=== PATIENT | female | born 1965 | race Caucasian/White ===

== ENCOUNTER 2019-12-24 08:48 | Day surgery (SDC) | payer BC ==
[~2019-12-24 08:48] MED LIST: Lactated Ringers 1,000 ML IV SCH; Sodium Chloride 0.9% 10 ML Syringe FLUSH PRN
[2019-12-24] MEDS ORDERED: Propofol 200 MG/20 ML SDV IV ONE (08:49)
[2019-12-24] MEDS ORDERED: Lidocaine 1% PF 2 ML SDV INJECT ONE (08:49)
--- NOTE | 2019-12-24 11:12 | PCM.OPNOTE ---
- General Post-Op/Procedure Note Date of Surgery/Procedure: 12/24/19 Operative Procedure(s): c scope with biopsy loop snare Findings: hemorrhoids rectal polyp Pre Op Diagnosis: bleeding per rectum Post-Op Diagnosis: rectal polyp. hemorrhoids Anesthesia Technique: MAC Primary Surgeon: Stevenson Simon Anesthesia Provider: Axel Mandujano Pathology: rectal polyp Complications: None Condition: Good Free Text/Narrative:: see dictation area marked with spot
--- NOTE | 2019-12-24 12:43 | OR ---
DATE OF OPERATION: 12/24/2019 SURGEON: Stevenson Simon MD PROCEDURE PERFORMED: Colonoscopy with hot loop snare biopsy. PREOPERATIVE DIAGNOSIS: History of bleeding per rectum. POSTOPERATIVE DIAGNOSES: Rectal polyp at 10 cm and internal and external hemorrhoids. INDICATIONS FOR PROCEDURE: This is a 54-year-old white female, who is presenting for a colonoscopy for a history of bleeding per rectum. She was offered and accepted C-scope. DESCRIPTION OF OPERATION: After an excellent IV sedation was administered, digital rectal exam was performed. External hemorrhoids were noted. The flexible colonoscope was inserted and advanced to the cecum. The prep was excellent. The following findings were noted: Ascending colon, unremarkable. Transverse colon, unremarkable. Descending colon, unremarkable. Sigmoid, unremarkable. Rectum at 10 cm, approximately a 3 cm pedunculated polyp was encountered. This was removed with multiple passes of the hot loop snare. The base of the polyp was tattooed with the Spot system to aid in further followup. Internal hemorrhoidal tissue was also noted. The patient tolerated the procedure well, was taken to Recovery. We will contact the patient with results. /[id number] /MODL
== END 2019-12-24 12:07 | disposition home or self-care (01) ==
LOC: FB.SDS 08:48
PROVIDERS: ATTEND Surgery
DX: D01.2 Carcinoma in situ of rectum (principal); K64.8 Other hemorrhoids; K64.4 Residual hemorrhoidal skin tags; Z79.82 Long term (current) use of aspirin; Z79.899 Other long term (current) drug therapy; Z88.8 Allergy status to other drugs, medicaments and biological substances
CPT/HCPCS: 00811; 45381; 45385; 88305; J2001; J2704; J7120